=== PATIENT | male | born 1975 | race Caucasian/White ===

== ENCOUNTER 2019-07-18 08:08 | Emergency (ER) | payer OTHER, BC ==
[2019-07-18 08:44] VITALS: BP 143/72
--- NOTE | 2019-07-18 09:00 | UC ---
Respiratory Complaint HPI - HPI Summary HPI Summary: 44 yo diabetic with several day history of sinus congestion, with increase in cough this morning with some chest pain in the sternal area, but only with coughing. Feels fatigued but does not have shortness of breath. Diabetes since age 24, blood sugars have been within his nromal ranges. Twin 22 mo sons at home with respiratory illnesses. - History of Current Complaint Stated Complaint: COUGH Time Seen by Provider: 07/18/19 08:43 Hx Obtained From: Patient Onset/Duration: Gradual Onset, Lasting Days - 3 Timing: Intermittent Episodes - of cough, lasting seconds. Severity Initially: Mild Severity Currently: Mild Pain Intensity: 4 Character: Cough: Productive - blood tinged sputum. Aggravating Factors: Recumbent Position Alleviating Factors: Nothing Associated Signs And Symptoms: Positive: URI, Nasal Congestion, Sinus Discomfort. Negative: Dyspnea, Fever, Wheezing - Risk Factors Pulmonary Embolism Risk Factors: Negative Cardiac Risk Factors: Negative Pseudomonas Risk Factors: Negative Tuberculosis Risk Factors: Negative - Allergies/Home Medications Allergies/Adverse Reactions: Allergies Allergy/AdvReac Type Severity Reaction Status Date / Time erythromycin base Allergy Hives Verified 07/18/19 08:35 Home Medications: Home Medications Guaifenesin/Dextromethorphan [Mucinex Dm Maximum Streng 60-1200 mg] 1 tab PO PRN 07/18/19 [History] Multivitamin [Multivitamins] 1 cap PO 07/18/19 [History] PMH/Surg Hx/FS Hx/Imm Hx Endocrine History: Diabetes - Surgical History Surgical History: Yes Surgery Procedure, Year, and Place: Left ACL reconstruction 1996 - Family History Known Family History: Positive: None - parents living and healthy Negative: Diabetes - Social History Occupation: Employed Full-time Lives: With Family Alcohol Use: None Substance Use Type: None Smoking Status (MU): Former Smoker When Did the Patient Quit Smoking/Using Tobacco: 1998 Review of Systems All Other Systems Reviewed And Are Negative: Yes Constitutional: Positive: Fatigue Skin: Positive: Negative Eyes: Positive: Negative ENT: Positive: Sore Throat, Nasal Discharge, Sinus Congestion Respiratory: Positive: Cough. Negative: Shortness Of Breath Cardiovascular: Positive: Chest Pain - with coughing only. Gastrointestinal: Positive: Negative Genitourinary: Positive: Negative Motor: Positive: Negative Neurovascular: Positive: Negative Musculoskeletal: Positive: Negative Neurological: Positive: Negative Psychological: Positive: Negative Is Patient Immunocompromised?: No Physical Exam Triage Information Reviewed: Yes Appearance: No Pain Distress, Ill-Appearing - congested, looks mildly unwell Vital Signs: Initial Vital Signs Temp 98.1 F 07/18/19 08:38 Pulse 96 07/18/19 08:38 Resp 17 07/18/19 08:38 BP 143/72 07/18/19 08:38 Pulse Ox 97 07/18/19 08:38 ENT: Positive: Pharyngeal erythema, TM dull - bilaterally Neck: Positive: Supple, Nontender, No Lymphadenopathy Respiratory: Positive: Lungs clear, Normal breath sounds Cardiovascular: Positive: RRR, No Murmur Musculoskeletal Exam: Normal Neurological Exam: Normal Neurological: Positive: Fatigued Skin Exam: Normal Respiratory Course/Dx - Course Course Of Treatment: amoxicillin for treatment of sinusitis. Early treatment elected due to diabetes. - Differential Dx/Diagnosis Differential Diagnosis/HQI/PQRI: Bronchitis, Lower Resp Infection, Sinusitis Provider Diagnosis: Sinusitis Discharge ED - Sign-Out/Discharge Documenting (check all that apply): Patient Departure All imaging exams completed and their final reports reviewed: No Studies - Discharge Plan Condition: Stable Disposition: HOME Prescriptions: Amoxicillin PO (*) [Amoxicillin 875 MG (*)] 875 mg PO BID #20 tab Patient Education Materials: Sinusitis (ED) Referrals: Francisco Thompson MD [Primary Care Provider] - Additional Instructions: Begin use of amoxicillin for treatment of sinusitis. Use of flonase spray can help to decrease the sinus drainage, and this should help to decrease the cough. Clinically, your lungs sound clear without wheeze of signs of pneumonia. Follow up if you have increasing fever or shortness of breath. - Billing Disposition and Condition Condition: STABLE Disposition: Home
== END 2019-07-18 09:14 | disposition home or self-care (01) ==
LOC: UCCORT 08:08
DX: J32.9 Chronic sinusitis, unspecified (principal); R53.83 Other fatigue; J02.9 Acute pharyngitis, unspecified; R07.9 Chest pain, unspecified; E11.9 Type 2 diabetes mellitus without complications; Z88.1 Allergy status to other antibiotic agents; Z87.891 Personal history of nicotine dependence
CPT/HCPCS: 99212; G0463